=== PATIENT | male | born 1955 | race Caucasian/White ===

== ENCOUNTER → 2016-09-01 | Outpatient (CLI) | payer OTHER ==
[2016-09-01 10:28] LABS: BASOPHILS # (AUTO) 0.06 10*3/UL; BASOPHILS % (AUTO) 0.9 % (0-1); EOSINOPHILS # (AUTO) 0.19 10*3/UL; EOSINOPHILS % (AUTO) 2.8 % (0-8); HEMATOCRIT 47.3 % (42.0-52.0); HEMOGLOBIN 16.5 g/dL (14.0-18.0); LYMPHOCYTES # (AUTO) 2.26 10*3/uL; MEAN CORPUSCULAR HEMOGLOBIN 30.8 PG (27-31); MEAN CORPUSCULAR HGB CONC 34.9 g/dL (33-37); MEAN CORPUSCULAR VOLUME 88.2 FL (80-90); MEAN PLATELET VOLUME 9.4 FL (7.4-12.2); MONOCYTES # (AUTO) 0.97 10*3/UL (0.3-0.8); MONOCYTES % (AUTO) 14.2 % (5-15); NEUTROPHILS # (AUTO) 3.31 10*3/UL; NEUTROPHILS % (AUTO) 48.6 % (50-80); RED BLOOD COUNT 5.36 10^6/uL (4.70-6.10)
[2016-09-01 10:31] LABS: PLATELET MORPHOLOGY COMMENT NORMAL MORPHOLOGY (NORM); RBC MORPHOLOGY COMMENT NORMAL MORPHOLOGY (NORM); WBC MORPHOLOGY COMMENT NORMAL MORPHOLOGY (NORM)
[2016-09-01 10:48] LABS: CHOL/HDL RATIO 5.67 RATIO (0-4.0); LDL CHOLESTEROL,CALCULATED 97.2 mg/dL
[2016-09-01 11:39] LABS: BLOOD UREA NITROGEN 17 mg/dL (7-22); CALCIUM 9.4 mg/dL (8.7-10.7); EST GLOMERULAR FILTRATION > 60 (>60 ml/min/1.73m(2)); SERUM ALBUMIN 4.3 g/dL (3.5-4.8)
[2016-09-01 11:55] LABS: FREE T4 (FREE THYROXINE) 0.95 ng/dL (0.93-1.71)
== END ==
LOC: LAB 10:13
PROVIDERS: ATTEND Internal Medicine
DX: E78.5 Hyperlipidemia, unspecified (principal); I10 Essential (primary) hypertension; K21.9 Gastro-esophageal reflux disease without esophagitis; Z12.5 Encounter for screening for malignant neoplasm of prostate
CPT/HCPCS: 36415; 80053; 80061; 82550; 84439; 84443; 85025; G0103

== ENCOUNTER → 2016-09-04 | Outpatient (CLI) | payer OTHER | LOC: MMPC 11:11 | PROVIDERS: ATTEND Internal Medicine | DX: I10 Essential (primary) hypertension (principal); E78.5 Hyperlipidemia, unspecified; M46.96 Unspecified inflammatory spondylopathy, lumbar region; N52.9 Male erectile dysfunction, unspecified | CPT/HCPCS: 99214; G0463 ==

== ENCOUNTER → 2016-11-30 | Outpatient (CLI) | payer OTHER | LOC: MMPC 09:00 | PROVIDERS: ATTEND Physician Assistant Medical | DX: M25.541 Pain in joints of right hand (principal); M25.542 Pain in joints of left hand | CPT/HCPCS: 99213; G0463 ==